=== PATIENT | male | born 1965 | race Caucasian/White ===

== ENCOUNTER → 2023-07-05 12:28 | Outpatient (REF) | payer BC, SELFPAY | LOC: HWRAD 12:28 | PROVIDERS: ATTENDING PHYSICIAN Nurse Practitioner Family | DX: I10 Essential (primary) hypertension (principal); M25.532 Pain in left wrist; R20.2 Paresthesia of skin; M54.50 Low back pain, unspecified | CPT/HCPCS: 72100; 73110 ==

== ENCOUNTER 2024-05-02 06:16 | Day surgery (SDC) | payer BC, SELFPAY ==
[2024-05-02 09:08] LABS: COVID-19 Antigen Negative (Negative)
== END 2024-05-02 10:45 | disposition home or self-care (01) ==
LOC: GI 06:16
PROVIDERS: ATTENDING PHYSICIAN Surgery
DX: Z12.11 Encounter for screening for malignant neoplasm of colon (principal); K57.30 Diverticulosis of large intestine without perforation or abscess without bleeding; D12.0 Benign neoplasm of cecum; D12.8 Benign neoplasm of rectum; K63.5 Polyp of colon
CPT/HCPCS: 45385; 45380; 88305; 87502; 87811

== ENCOUNTER → 2024-09-07 14:45 | Outpatient (REF) | payer BC, SELFPAY | LOC: HWRCS 14:45 | PROVIDERS: ATTENDING PHYSICIAN Nurse Practitioner Family | DX: R94.31 Abnormal electrocardiogram [ECG] [EKG] (principal); F41.0 Panic disorder [episodic paroxysmal anxiety] | CPT/HCPCS: 93306 ==